=== PATIENT | male | born 1950 | race Caucasian/White ===

== ENCOUNTER → 2016-07-31 | Outpatient (CLI) | payer BC ==
[~2016-07-31] MED LIST: AGG PO; AMLO2.5T PO; ASCO10003 PO; CALC250T8 PO; CHOL2000 PO; CYAN500T13 PO; DIPH25CA65 PO; LEUP1INJ15 IM; LPT/40 PO; PYRI1TAB40 PO; VITATAB11 PO; [UNRECOGNIZED DRUG - OTHER] PO
[2016-07-31 13:11] LABS: BASO % 0.5 %; BASO ABS # 0.03 K/uL (0-0.2); COMPLETE YES; EOS % 3.9 %; HEMATOCRIT 43.5 % (42-52); IG% 0.2 %; LYMPH ABS # 1.18 K/uL (1.2-3.4); MEAN CELL VOLUME 93.5 fL (80-100); MEAN CORPUSCULAR HEMOGLOBIN 32.7 pg (25-34); MEAN CORPUSCULAR HGB CONC 34.9 g/dl (32-36); MEAN PLATELET VOLUME 10.1 fL (7.4-10.4); NEUT % 66.4 %; PLATELET COUNT 249 K/uL (130-400); RED BLOOD COUNT 4.65 M/uL (4.7-6.1)
[2016-07-31 13:46] LABS: ALT/SGPT 43 U/L (12-78); AST/SGOT 28 U/L (15-37); BLOOD UREA NITROGEN 19 mg/dl (7-18); BUN/CREATININE RATIO 23.9 (10-20); CALCIUM 9.1 mg/dl (8.5-10.1); CARBON DIOXIDE 28 mmol/L (21-32); CHLORIDE 103 mmol/L (98-107); CREATININE 0.79 mg/dl (0.60-1.40); GLUCOSE 85 mg/dl (70-99); SODIUM 139 mmol/L (136-145)
[2016-07-31 13:57] LABS: ALB/GLOB RATIO 1.1 (0.9-2); ALKALINE PHOSPHATASE 71 U/L (45-117); CHOLESTEROL 204 mg/dl (0-200); CHOLESTEROL/HDL RATIO 1.7; HDL CHOLESTEROL 123 mg/dl; LDL CHOLESTEROL CALCULATED 59 mg/dl; THYROID STIMULATING HORMONE 0.858 uIu/ml (0.300-4.500); TRIGLYCERIDES 111 mg/dl (0-150); VERY LOW DENSITY LIPOPROT CALC 22 mg/dl
== END | disposition home or self-care (01) ==
LOC: C.LAB1850 11:35
PROVIDERS: ATTEND Internal Medicine
DX: Z00.00 Encounter for general adult medical examination without abnormal findings (principal); I65.29 Occlusion and stenosis of unspecified carotid artery; E78.5 Hyperlipidemia, unspecified; I10 Essential (primary) hypertension; I34.1 Nonrheumatic mitral (valve) prolapse; E04.1 Nontoxic single thyroid nodule

== ENCOUNTER → 2016-08-08 | Outpatient (CLI) | payer BC ==
[2016-08-08 14:51] LABS: BLOOD UREA NITROGEN 19 mg/dl (7-18); BUN/CREATININE RATIO 26.3 (10-20); CREATININE 0.72 mg/dl (0.60-1.40)
[2016-08-08 14:55] LABS: PROSTATE SPECIFIC ANTIGEN < 0.010 ng/ml (0.000-4.000)
[2016-08-08 15:20] LABS: LYME DISEASE AB IGG NEG (NEG)
[2016-08-08 15:22] LABS: LYME DISEASE AB IGM NEG (NEG)
== END | disposition home or self-care (01) ==
LOC: C.LAB1850 12:43
PROVIDERS: ATTEND Internal Medicine
DX: C61 Malignant neoplasm of prostate (principal); N52.9 Male erectile dysfunction, unspecified; E55.9 Vitamin D deficiency, unspecified; Z86.73 Personal history of transient ischemic attack (TIA), and cerebral infarction without residual deficits; R23.2 Flushing

== ENCOUNTER → 2016-08-30 | Outpatient (CLI) | payer BC ==
[2016-08-30 13:53] VITALS: BP 152/76; PULSE 78; TEMP 36.9; O2SAT 100
--- NOTE | 2016-08-30 16:13 | Radiation Oncology Follow-Up ---
Radiation Oncology Follow-Up Date of Visit Aug 30, 2016. Reason For Visit 6 month follow-up Radiation Completion Date 01/06/16 - Salvage Radiation Diagnosis (1) Prostate cancer Status: Resolved Onset Date: 01/22/2013 Location: both lobes of the prostate Histology Subtype: adenocarcinoma Stage: ll Permanent Comment: Rising PSA. Pretreatment PSA 6.14. Status post ultrasound-guided biopsies, biopsy stage T2b Stinnett 4+3 Status post robotic-assisted laparoscopic radical retropubic prostatectomy, right sided fullness or sparing, left sided partial nerve sparing prostatectomy 01/08/2013 Erica 3+4 with perineural invasion Stage pT2c pNX Slow rise in PSA Hormonal suppression Status post completion of salvage radiation therapy 01/06/2016 received 7020 cGy. Last Edited By: Sisi Arenas on Jan 19, 2016 09:41 History of Present Illness This is a 65 old gentleman initially seen in consultation 12/25/2012. He had a rising PSA to 6.14. He had clinical stage TIc. He underwent ultrasound-guided biopsies. There was involvement of the left side of the prostate. Biopsy stage T2b. The Erica was 4+3.The ultrasound-guided biopsies were therefore scheduled and performed on October 22, 2012. A total of 20 biopsies were taken, that is three each from the left and right base, left and right mid , left and right apex and one each from the left and right anterior. The left base biopsy revealed minute foci of adenocarcinoma with no perineural invasion seen and insufficient tissue for Erica grading. The right base revealed benign prostatic tissue. Left mid revealed 3/3 specimens positive for adenocarcinoma, Erica grade 4 + 3 involving 15% of one core sample and less than 8% in the other 2. No perineural invasion is seen. Three biopsies from the right mid gland revealed benign prostatic tissue. 3/3 biopsies from the left apex were positive for adenocarcinoma, Stinnett grade of 4 + 3 involving 25%, 10 % and 5% respectfully. No perineural invasion was seen. Three biopsies from the right apex were benign. One biopsy from the left anterior was positive for a small focus of adenocarcinoma with no perineural invasion seen. The tissue was insufficient for Erica grading. Right anterior biopsy revealed benign prostatic tissue. Therefore a total of 8/20 biopsies were positive for Erica 4 +3, Case:[id number]. Following the biopsies the patient returned to discuss these findings with Dr. Norris on October 30, 2012. The estimated prostate weight was 23.[address] Norris discussed briefly treatment options and scheduled the patient to see Dr. Rucker for discussion of the robotic laparoscopic treatment options and to see radiation oncology for discussion of the radiation treatment options. The patient was seen by Dr. Rucker on December 23. The patient is strongly considering surgery. This has been tentatively scheduled for him. A bone scan had been obtained on November 03 showing uptake in the cervical spine without evidence of definitive metastatic disease. Cervical spine films showed sclerosis in the C4 vertebral body of uncertain significance but no definitive evidence of metastatic disease. We are seeing the patient today to discuss the radiation treatment options. Patient elected to undergo a robotic prostatectomy. This procedure was performed 01/08/2013. He had a robotic-assisted laparoscopic radical retropubic prostatectomy, right sided Full nerve sparing, left sided partial nerve sparing prostatectomy. Pathology revealed adenocarcinoma with a Erica of 3+4. There is no extraprostatic extension, seminal vesicles were not involved, The margin was negative but approached within 1 mm. There is no lymphovascular invasion. There was perineural invasion.AJCC staging was pT2c pNX. He's been followed closely by Dr. Rucker and has had serial PSAs post-prostatectomy. The PSA was less than 0.13 in February 2013. Then the ultrasensitive PSAs became available. He had a PSA of 09/02/2013 that was 0.011. This remained the same until June 162014. The PSA was then 0.021. On 11/15/2017 the PSA was 0.027. On 03/09/2015 PSA was 0.032. On 08/01/2015 PSA was 0.052. On 09/07/2015 PSA was 0.055. With the slow changes of the PSA patient has been referred back to our office to discuss radiation therapy. The decision was to proceed with hormonal suppression with salvage radiation therapy. The radiation was completed 01/06/2016. He received 7020 cGy Interim History He has been doing well over the past 6 months. His AUA score was 9. He completed expanded prostate cancer index composite for clinical practice and gave a score of one of 12 and urinary incontinence symptoms. He gave a score of 2 of 12 and urinary irritation symptoms. He was score of 0 of 12 in bowel symptoms. He gave a score of 5 of 12 and sexual symptoms. He gave a score of 4 out of 12 in hormonal vitality symptoms. His total was 12 of 60. He has had recheck PSAs and these have been excellent. His PSA 02/07/2016 was less than 0.010. The PSA was the same on 08/08/2016. He did have considerable side effects to the hormone suppression. He was special he bothered with hot flashes. These do continue but are improving. He was taught methods by the crm coordinator and these did also help his hot flashes. He feels that his urinary symptoms have increased due to the increased amount of fluid he has been drinking. He did note that he no longer has nocturia. Allergies Coded Allergies: Bacitracin (Unverified Allergy, Mild, RASH, 03/14/16) Neomycin (Unverified Allergy, Mild, RASH, 03/14/16) Polymyxin B (Unverified Allergy, Mild, RASH, 03/14/16) Home Medications Scheduled Amlodipine (Norvasc), 2.5 MG PO DAILY Ascorbic Acid (Vitamin C), 1 TAB PO QPM Aspirin-Dipyridamole 25MG/200MG (Aggrenox 200MG/25MG), 1 CAP PO BID Atorvastatin (Lipitor), 40 MG PO HS Cholecalciferol (Vitamin D3), 5,000 MG PO QPM Cyanocobalamin (Vitamin B12 500MCG), 500 MCG PO QAM Leuprolide Acetate (Lupron Depot), 1 DOSE IM DIRECTED Pyridoxine HCl (Vitamin B6), 1 TAB PO QPM Vitamins W/ Lipotropics (Lipoflavonoid), 1 TAB PO TID [Gamma E Tocophelol], 1 CAP PO QPM Review of Systems Gastrointestinal: Symptoms: WNL Oral: Symptoms: No Problems Respiratory: Symptoms: WNL Urinary: Symptoms: WNL Comments: See AUA & EPIC Skin: Symptoms: No Problems Physical Exam Vital Signs Date Time Temp Pulse Resp B/P Pulse Ox O2 Delivery O2 Flow Rate FiO2 08/30/16 13:53 36.9 78 16 152/76 100 Fatigue: None General Appearance: no apparent distress Eyes: normal inspection, EOMI ENT: normal ENT inspection, hearing grossly normal Respiratory/Chest: lungs clear, no respiratory distress, no accessory muscle use Cardiovascular: regular rate, rhythm, no gallop, no murmur Abdomen: non tender, soft Anal / Rectum: Rectal examination reveals normal sphincter tone. Prostate bed is flat. No rectal masses no rectal bleeding. Extremities: no pedal edema Laboratory Studies Test 07/31/16 11:38 08/08/16 12:49 White Blood Count 6.20 K/uL (4.8-10.8) Red Blood Count 4.65 M/uL (4.7-6.1) Hemoglobin 15.2 g/dL (14.0-18.0) Hematocrit 43.5 % (42-52) Mean Corpuscular Volume 93.5 fL (80-100) Mean Corpuscular Hemoglobin 32.7 pg (25-34) Mean Corpuscular Hemoglobin Concent 34.9 g/dl (32-36) Platelet Count 249 K/uL (130-400) Mean Platelet Volume 10.1 fL (7.4-10.4) Neutrophils (%) (Auto) 66.4 % Lymphocytes (%) (Auto) 19.0 % Monocytes (%) (Auto) 10.0 % Eosinophils (%) (Auto) 3.9 % Basophils (%) (Auto) 0.5 % Neutrophils # (Auto) 4.12 K/uL (1.4-6.5) Lymphocytes # (Auto) 1.18 K/uL (1.2-3.4) Monocytes # (Auto) 0.62 K/uL (0.11-0.59) Eosinophils # (Auto) 0.24 K/uL (0-0.5) Basophils # (Auto) 0.03 K/uL (0-0.2) RDW Standard Deviation 46.6 fL (36.4-46.3) RDW Coefficient of Variation 13.7 % (11.5-14.5) Immature Granulocyte % (Auto) 0.2 % Immature Granulocyte # (Auto) 0.01 K/uL (0.00-0.02) Sodium Level 139 mmol/L (136-145) Potassium Level 4.0 mmol/L (3.5-5.1) Chloride Level 103 mmol/L (98-107) Carbon Dioxide Level 28 mmol/L (21-32) Anion Gap 8.0 mmol/L (3-11) Blood Urea Nitrogen 19 mg/dl (7-18) 19 mg/dl (7-18) Creatinine 0.79 mg/dl (0.60-1.40) 0.72 mg/dl (0.60-1.40) Estimated GFR () 110.0 114.3 Estimated GFR (Non- 94.9 98.6 BUN/Creatinine Ratio 23.9 (10-20) 26.3 (10-20) Random Glucose 85 mg/dl (70-99) Calcium Level 9.1 mg/dl (8.5-10.1) Total Bilirubin 0.8 mg/dl (0.2-1) Aspartate Amino Transferase (AST) 28 U/L (15-37) Alanine Aminotransferase (ALT) 43 U/L (12-78) Alkaline Phosphatase 71 U/L (45-117) Total Protein 8.1 gm/dl (6.4-8.2) Albumin 4.2 gm/dl (3.4-5.0) Globulin 3.9 gm/dl (2.5-4.0) Albumin/Globulin Ratio 1.1 (0.9-2) Triglycerides Level 111 mg/dl (0-150) Cholesterol Level 204 mg/dl (0-200) HDL Cholesterol 123 mg/dl LDL Cholesterol, Calculated 59 mg/dl VLDL Cholesterol, Calculated 22 mg/dl Cholesterol/HDL Ratio 1.7 Thyroid Stimulating Hormone (TSH) 0.858 uIu/ml (0.300-4.500) Prostate Specific Antigen < 0.010 ng/ml (0.000-4.000) Vitamin B12 Level 708 pg/mL (211-911) 25-Hydroxy Vitamin D Total 38.6 ng/ml (30-100) Lyme Disease IgG Antibody NEG (NEG) Lyme Disease IgM Antibody NEG (NEG) Assessment & Plan Plan: He'll continue recheck PSAs every 6 months. He'll be seeing Dr. Rucker in February. His reports were reviewed and he did have a colonoscopy March 2016. There were no rectal issues. He did have a polyp removed. He has completed hormone suppression. His hot flashes should steadily improved as he gets further away from the last injection. We asked him to return to our office in 1 year. He may call if he has been questions or concerns in the interim. Total Time In Follow-Up I spent 20 minutes speaking to the patient and performing examination. I spent 15 minutes reviewing information and completeness note. Copy To Santino Rucker MD, Urology; Pro,Kyree Mayer M.D.
== END | disposition home or self-care (01) ==
LOC: C.ONC 13:42
PROVIDERS: ATTEND Physician Assistant Medical
DX: Z08 Encounter for follow-up examination after completed treatment for malignant neoplasm (principal); Z92.3 Personal history of irradiation; Z85.46 Personal history of malignant neoplasm of prostate

== ENCOUNTER → 2017-09-06 | Outpatient (CLI) | payer BC ==
[~2017-09-06] MED LIST changes: -CALC250T8 PO; +CYAN500T PO; -DIPH25CA65 PO; +GLUCCAP31; +[UNRECOGNIZED DRUG - OTHER]
[2017-09-06 11:44] VITALS: BP 208/98; PULSE 74; TEMP 37.2; O2SAT 98
--- NOTE | 2017-09-06 13:09 | Radiation Oncology Follow-Up ---
Radiation Oncology Follow-Up Date of Visit September 06, 2017. Reason For Visit Annual follow-up Radiation Completion Date 01/06/16 Diagnosis (1) Prostate cancer Status: Resolved Onset Date: 01/22/2013 Location: Both lobes of the prostate Histology Subtype: Adenocarcinoma Stage: ll Permanent Comment: Rising PSA. Pretreatment PSA 6.14. Status post ultrasound-guided biopsies, biopsy stage T2b Amigo 4+3 Status post robotic-assisted laparoscopic radical retropubic prostatectomy, right sided fullness or sparing, left sided partial nerve sparing prostatectomy 01/08/2013 Erica 3+4 with perineural invasion Stage pT2c pNX Slow rise in PSA Hormonal suppression Status post completion of salvage radiation therapy 01/06/2016 received 7020 cGy. Last Edited By: Sisi Arenas on Jan 19, 2016 09:41 History of Present Illness Mr. Santiago was initially seen in consultation 12/25/2012. He had a rising PSA to 6.14. He had clinical stage TIc. He underwent ultrasound-guided biopsies. There was involvement of the left side of the prostate. Biopsy stage T2b. The Erica was 4+3.The ultrasound-guided biopsies were therefore scheduled and performed on October 22, 2012. A total of 20 biopsies were taken, that is three each from the left and right base, left and right mid , left and right apex and one each from the left and right anterior. The left base biopsy revealed minute foci of adenocarcinoma with no perineural invasion seen and insufficient tissue for Erica grading. The right base revealed benign prostatic tissue. Left mid revealed 3/3 specimens positive for adenocarcinoma, Erica grade 4 + 3 involving 15% of one core sample and less than 8% in the other 2. No perineural invasion is seen. Three biopsies from the right mid gland revealed benign prostatic tissue. 3/3 biopsies from the left apex were positive for adenocarcinoma, Amigo grade of 4 + 3 involving 25%, 10 % and 5% respectfully. No perineural invasion was seen. Three biopsies from the right apex were benign. One biopsy from the left anterior was positive for a small focus of adenocarcinoma with no perineural invasion seen. The tissue was insufficient for Erica grading. Right anterior biopsy revealed benign prostatic tissue. Therefore a total of 8/20 biopsies were positive for Erica 4 +3, [id number]. Following the biopsies the patient returned to discuss these findings with Dr. Norris on October 30, 2012. The estimated prostate weight was 23.[address] Norris discussed briefly treatment options and scheduled the patient to see Dr. Rucker for discussion of the robotic laparoscopic treatment options and to see radiation oncology for discussion of the radiation treatment options. The patient was seen by Dr. Rucker on December 23. The patient is strongly considering surgery. This has been tentatively scheduled for him. A bone scan had been obtained on November 03 showing uptake in the cervical spine without evidence of definitive metastatic disease. Cervical spine films showed sclerosis in the C4 vertebral body of uncertain significance but no definitive evidence of metastatic disease. We are seeing the patient today to discuss the radiation treatment options. Patient elected to undergo a robotic prostatectomy. This procedure was performed 01/08/2013. He had a robotic-assisted laparoscopic radical retropubic prostatectomy, right sided Full nerve sparing, left sided partial nerve sparing prostatectomy. Pathology revealed adenocarcinoma with a Erica of 3+4. There is no extraprostatic extension, seminal vesicles were not involved, The margin was negative but approached within 1 mm. There is no lymphovascular invasion. There was perineural invasion.AJCC staging was pT2c pNX. He's been followed closely by Dr. Rucker and has had serial PSAs post-prostatectomy. The PSA was less than 0.13 in February 2013. Then the ultrasensitive PSAs became available. He had a PSA of 09/02/2013 that was 0.011. This remained the same until June 162014. The PSA was then 0.021. On 11/15/2017 the PSA was 0.027. On 03/09/2015 PSA was 0.032. On 08/01/2015 PSA was 0.052. On 09/07/2015 PSA was 0.055. With the slow changes of the PSA patient has been referred back to our office to discuss radiation therapy. The decision was to proceed with hormonal suppression with salvage radiation therapy. The radiation was completed 01/06/2016. He received 7020 cGy Interim History He has been doing well over this past year. He denies any change of urination. Today he gave an AUA score of 5. He does have increased urination at times which is related to increased fluid intake. He completed and expanded prostate cancer index composite for clinical practice and gave a score of 2 of 12 and urinary incontinence symptoms. He gave a score of 1 of 12 and urinary irritation symptoms. He gives score of 0 of 12 and bowel symptoms. He gave a score of 6 of 12 and sexual symptoms. He gave a score of 0 of 12 and hormonal vitality symptoms. His total was 9 of 60. He did see Dr. Rucker in follow-up in February. His PSAs have remained less than 0.010 since 2016. Allergies Coded Allergies: Bacitracin (Unverified Allergy, Mild, RASH, 03/14/16) Neomycin (Unverified Allergy, Mild, RASH, 03/14/16) Polymyxin B (Unverified Allergy, Mild, RASH, 03/14/16) Home Medications Scheduled Amlodipine (Norvasc), 2.5 MG PO DAILY Ascorbic Acid (Vitamin C), 1 TAB PO QPM Aspirin-Dipyridamole 25MG/200MG (Aggrenox 200MG/25MG), 1 CAP PO BID Atorvastatin (Lipitor), 40 MG PO HS Cholecalciferol (Vitamin D3), 5,000 MG PO QPM Cyanocobalamin (Vitamin B12 500MCG), 500 MCG PO QAM Cyanocobalamin (Vitamin B-12), 500 MCG PO DAILY Glucosamine Sulfate-Methylsulf (Msm/Glucosamine), BID Vitamins W/ Lipotropics (Lipoflavonoid), 1 TAB PO TID [Gamma E Tocophelol], 1 CAP PO QPM [jarroe-zymes], AC Review of Systems Gastrointestinal: Symptoms: WNL Oral: Symptoms: No Problems Respiratory: Symptoms: SOB With Exertion Urinary: Symptoms: WNL Skin: Symptoms: No Problems Physical Exam Vital Signs Date Time Temp Pulse Resp B/P (MAP) Pulse Ox O2 Delivery O2 Flow Rate FiO2 09/06/17 11:44 37.2 74 18 208/98 98 Fatigue: None General Appearance: no apparent distress Eyes: normal inspection, EOMI ENT: normal ENT inspection, hearing grossly normal Respiratory/Chest: lungs clear, no respiratory distress, no accessory muscle use Cardiovascular: regular rate, rhythm, no gallop, no murmur Abdomen: non tender, soft, no organomegaly Anal / Rectum: Normal sphincter tone. Prostate bed reveals no masses and no rectal bleeding. Extremities: no pedal edema Neurologic/Psychiatric: normal mood/affect Skin: warm/dry Pain Management Patient Reports Pain: No Pain Location: None Patient Preferred Pain Scale: 0 - 10 Initial Pain Intensity: 0.0 Pain Management Plan He denies pain therefore requires no pain management. Laboratory Laboratory Results: were reviewed Laboratory Comments: Test 09/06/17 11:58 Prostate Specific Antigen < 0.010 ng/ml (0.000-4.000) Reviewed in the interim history Pathology Pathology Results: were reviewed, and pertinent findings noted in HPI Imaging Imaging Studies: not applicable Assessment & Plan Plan: Continue regular follow-up with urology and his primary care physician. He will be notified as the results of his PSA. We discussed having PSAs every 6 months. We asked him to return to our office in 1 year. He may call if he has any questions or concerns in the interim. Total Time In Follow-Up I spent 20 minutes speaking to the patient in performing examination. I spent 15 minutes reviewing information and completing this note. Copy To Santino Rucker MD, Urology; Pro,Kyree Mayer M.D.
== END | disposition home or self-care (01) ==
LOC: C.ONC 11:29
PROVIDERS: ATTEND Physician Assistant Medical
DX: Z08 Encounter for follow-up examination after completed treatment for malignant neoplasm (principal); Z92.3 Personal history of irradiation; Z85.46 Personal history of malignant neoplasm of prostate

== ENCOUNTER → 2017-12-24 | Outpatient (CLI) | payer BC ==
[~2017-12-24] MED LIST changes: -LEUP1INJ15 IM; -PYRI1TAB40 PO
== END | disposition home or self-care (01) ==
LOC: C.LABSPEC 10:31
PROVIDERS: ATTEND Urology
DX: R97.20 Elevated prostate specific antigen [PSA] (principal); N40.0 Benign prostatic hyperplasia without lower urinary tract symptoms; R35.1 Nocturia